=== PATIENT | female | born 1970 | race American Indian/Alaskan Native ===

== ENCOUNTER 2022-06-14 03:25 | Emergency (ER) | payer SELFPAY ==
[2022-06-14] MEDS ORDERED: KETOROLAC 10 MG TAB PO ONE (08:13)
[2022-06-14] MEDS ORDERED: ACETAMINOPHEN W/CODEINE 300-30 MG TAB PO ONE (08:13)
[2022-06-14] MEDS ORDERED: CYCLOBENZAPRINE 10 MG TAB PO ONE (08:13)
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
[2022-06-14 10:05] VITALS: BP 118/68
== END 2022-06-14 10:03 | disposition home or self-care (01) ==
LOC: ED 03:25
DX: M54.2 Cervicalgia (principal); M54.6 Pain in thoracic spine; M25.522 Pain in left elbow; Z79.899 Other long term (current) drug therapy; Y04.8XXA Assault by other bodily force, initial encounter; Y93.89 Activity, other specified; Y92.89 Other specified places as the place of occurrence of the external cause; Y99.8 Other external cause status
CPT/HCPCS: 72040; 72072; 99283